=== PATIENT | female | born 2000 | race African-American/Black ===

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

== ENCOUNTER 2019-01-18 09:31 | Emergency (ER) | payer MEDICAID ==
[2019-01-18 09:36] VITALS: BP 143/70
--- NOTE | 2019-01-18 09:54 | ER Document Report ---
HPI - HPI Time Seen by Provider: 01/18/19 09:50 Onset/Duration: Gradual Pain Level: 1 Context: Patient presents complaining of dysuria for the past 2 days and is concerned she has a UTI. Patient denies any fever vaginal bleeding, vaginal discharge nausea or vomiting. Patient denies any concerns about sexually transmitted infection. Patient denies any belly pain or flank pain. Associated Symptoms: Other - Dysuria. denies: Fever Exacerbated by: Denies Relieved by: Denies Similar symptoms previously: Yes Recently seen / treated by doctor: No - ROS ROS below otherwise negative: Yes Systems Reviewed and Negative: Yes All other systems reviewed and negative - CONSTITUTIONAL Constitutional: DENIES: Fever, Chills - RESPIRATORY Respiratory: DENIES: Trouble Breathing, Coughing - GASTROINTESTINAL Gastrointestinal: DENIES: Abdominal Pain, Nausea, Patient vomiting - URINARY Urinary: REPORTS: Dysuria. DENIES: Urgency, Frequency - REPRODUCTIVE Reproductive: DENIES: :, Abnormal bleeding / discharge - MUSCULOSKELETAL Musculoskeletal: DENIES: Back Pain - DERM Skin Color: Normal Skin Problems: None Past Medical History - General Information source: Patient - Social History Smoking Status: Never Smoker Chew tobacco use (# tins/day): No Frequency of alcohol use: None Drug Abuse: None Lives with: Family Family History: Reviewed & Not Pertinent Patient has suicidal ideation: No Patient has homicidal ideation: No Endocrine Medical History: Reports: Hx Diabetes Mellitus Type 2 - on metformin Renal/ Medical History: Denies: Hx Peritoneal Dialysis Surgical Hx: Negative - Immunizations Immunizations up to date: Yes Hx Diphtheria, Pertussis, Tetanus Vaccination: Yes Vertical Provider Document - CONSTITUTIONAL Agree With Documented VS: Yes Exam Limitations: No Limitations General Appearance: WD/WN, No Apparent Distress - INFECTION CONTROL TRAVEL OUTSIDE OF THE [place] IN LAST 30 DAYS: No - HEENT HEENT: Atraumatic, Normocephalic - NECK Neck: Normal Inspection - RESPIRATORY Respiratory: Breath Sounds Normal, No Respiratory Distress - CARDIOVASCULAR Cardiovascular: Regular Rate, Regular Rhythm - GI/ABDOMEN Gastrointestinal: Abdomen Soft, Abdomen Non-Tender, No Organomegaly, Normal Bowel Sounds - BACK Back: Normal Inspection. negative: CVA Tenderness-Right, CVA Tenderness-Left - MUSCULOSKELETAL/EXTREMETIES Musculoskeletal/Extremeties: MAEW - NEURO Level of Consciousness: Awake, Alert, Appropriate Motor/Sensory: No Motor Deficit - DERM Integumentary: Warm, Dry, No Rash Course - Re-evaluation Re-evalutation: 01/18/19 10:51 Patient with hematuria and 1+ bacteria and minimal leukocytes noted on urinalysis. We will culture her urine at this time and cover with antibiotics. Offered patient pelvic examination to further evaluate why she may be having the symptoms to rule out STD. Patient declines pelvic examination prefers just to treat symptomatically and to have a urine culture performed. Discussed worsening signs or symptoms that patient should return immediately for. Patient verbalized understanding and agrees with plan of care. - Vital Signs Vital signs: Temp Pulse Resp BP Pulse Ox 98.5 F 78 18 143/70 H 97 01/18/19 09:34 01/18/19 09:34 01/18/19 09:34 01/18/19 09:34 01/18/19 09:34 - Laboratory Laboratory results interpreted by me: 01/18/19 10:52 Labs- Entire Visit 01/18/19 09:45 Urine Color YELLOW Urine Appearance SLIGHTLY-CLOUDY Urine pH 6.0 Ur Specific [place] 1.016 Urine Protein NEGATIVE Urine Glucose (UA) NEGATIVE Urine Ketones NEGATIVE Urine Blood MODERATE H Urine Nitrite NEGATIVE Urine Bilirubin NEGATIVE Urine Urobilinogen NEGATIVE Ur Leukocyte Esterase NEGATIVE Urine WBC (Auto) 4 Urine RBC (Auto) 3 Urine Bacteria (Auto) 1+ Squamous Epi Cells Auto 7 U Non-Squamous Epis Auto 1 Urine Mucus (Auto) RARE Urine Ascorbic Acid NEGATIVE Discharge - Discharge Clinical Impression: UTI (urinary tract infection) Qualifiers: Urinary tract infection type: site unspecified Hematuria presence: with hematuria Qualified Code(s): N39.0 - Urinary tract infection, site not specified Condition: Stable Disposition: HOME, SELF-CARE Instructions: Cephalexin ([facility]), Urinary Anesthetic Agent ([facility]), Urinary Tract Infection ([facility]) Additional Instructions: Return immediately for any new or worsening symptoms Followup with your primary care provider, call tomorrow to make a followup appointment Urine culture is pending, we will call if you need any different treatment Prescriptions: Cephalexin Monohydrate [Keflex 500 mg Capsule] 500 mg PO BID 5 Days capsule Phenazopyridine HCl [Pyridium 200 mg Tablet] 200 mg PO TID #15 tablet Forms: Return to Work
[2019-01-18 10:18] LABS: APPEARANCE,URINE SLIGHTLY-CLOUDY; BILIRUBIN,URINE NEGATIVE (NEGATIVE); COLOR,URINE YELLOW; GLUCOSE, URINE NEGATIVE (NEGATIVE); KETONES,URINE NEGATIVE (NEGATIVE); LEUKOCYTE ESTERASE,URINE NEGATIVE (NEGATIVE); NITRITE,URINE NEGATIVE (NEGATIVE); PROTEIN,URINE NEGATIVE (NEGATIVE); URINE SPECIFIC GRAVITY 1.016; UROBILINOGEN,URINE NEGATIVE mg/dL (<2.0)
[2019-01-18] MEDS ORDERED: CEPHALEXIN 500 MG CAPSULE PO ONE (10:51)
[2019-01-18] MEDS ORDERED: PHENAZOPYRIDINE HCL 200 MG TABLET PO ONE (10:52)
== END 2019-01-18 11:08 | disposition home or self-care (01) ==
LOC: ER 09:31
DX: N39.0 Urinary tract infection, site not specified (principal); E11.9 Type 2 diabetes mellitus without complications; Z79.84 Long term (current) use of oral hypoglycemic drugs
CPT/HCPCS: 99283; 87086; 87088; 81001; 87186; J3490

== ENCOUNTER 2019-02-25 12:35 | Emergency (ER) | payer SELFPAY ==
[2019-02-25 12:49] VITALS: BP 123/72
--- NOTE | 2019-02-25 14:15 | ER Document Report ---
ED Medical Screen (RME) - General Chief Complaint: Vaginal Pain Stated Complaint: VAGINAL DISCOMFORT Time Seen by Provider: 02/25/19 14:06 Mode of Arrival: Ambulatory Information source: Patient TRAVEL OUTSIDE OF THE [place] IN LAST 30 DAYS: No - HPI Notes: 02/25/19 14:12 18-year-old female presents ED with complaints of having vaginal itching burning and discharge for the last 4 days, was seen at [facility], was diagnosed with bacterial vaginosis and put on Flagyl. Patient states that these symptoms are becoming worse and flagyl is not helping. Denies any fevers chills, nausea vomiting diarrhea, abdominal pain, pelvic pain. Patient does want to be evaluated for STD. Last menstrual period was approximately 2 weeks ago. Denies her primary care provider. ROS: Other than noted above, the 12 point review of systems was reviewed with the patient and were negative, all pertinent findings are included in the HPI. PHYSICAL EXAMINATION: Vital signs reviewed. GENERAL: Well-appearing, well-nourished and in no acute distress. CV: Heart regular rate and rhythm LUNGS: No respiratory distress ABD: generalized abd pain, deferred Musculoskeletal: Normal range of motion NEUROLOGICAL: Normal speech PSYCH: Normal mood, normal affect. MDM: Patient seen and examined for rapid initial assessment. Vital signs reviewed. A comprehensive ED assessment and evaluation of the patient, analysis of test results and completion of the medical decision making process will be conducted by additional ED providers. *Note is created using voice recognition software and may contain spelling, syntax or grammatical errors. - Related Data Allergies/Adverse Reactions: No Known Allergies Allergy (Verified 02/25/19 14:07) Past Medical History Endocrine Medical History: Reports: Hx Diabetes Mellitus Type 2 - on metformin Renal/ Medical History: Denies: Hx Peritoneal Dialysis - Immunizations Immunizations up to date: Yes Hx Diphtheria, Pertussis, Tetanus Vaccination: Yes Physical Exam - Vital signs Vitals: Temp Pulse Resp BP Pulse Ox 98.2 F 67 16 123/72 98 02/25/19 12:48 02/25/19 12:48 02/25/19 12:48 02/25/19 12:48 02/25/19 12:48 Course - Vital Signs Vital signs: Temp Pulse Resp BP Pulse Ox 98.2 F 67 16 123/72 98 02/25/19 12:48 02/25/19 12:48 02/25/19 12:48 02/25/19 12:48 02/25/19 12:48
[2019-02-25] MEDS ORDERED: CEFTRIAXONE INJ 250 MG VIAL IM ONE (14:29)
[2019-02-25] MEDS ORDERED: LIDOCAINE 1% INJ-PF (10 MG/ML) 30 ML SDV IM ONE (14:29)
[2019-02-25] MEDS ORDERED: AZITHROMYCIN 250 MG TABLET PO ONE (14:29)
--- NOTE | 2019-02-25 14:31 | ER Document Report ---
ED General - General Chief Complaint: Vaginal Pain Stated Complaint: VAGINAL DISCOMFORT Time Seen by Provider: 02/25/19 14:06 Mode of Arrival: Ambulatory TRAVEL OUTSIDE OF THE [place] IN LAST 30 DAYS: No - HPI Notes: Patient is a 18-year-old female with no significant past medical history who presents complaining of white vaginal discharge with associated itching and burning in the vaginal area over the past 4 days. She was evaluated about 2 days ago was diagnosed with BV and placed on Flagyl. Patient states that she has taken a couple doses since then without significant improvement. Patient is here for testing and evaluation. Denies drug allergies. Last menstrual period was 2 weeks ago. She is eating and drinking without difficulty. She is having normal bowel movements. She does have some burning with urination as well. Denies any headache, fever, neck pain, URI, sore throat, chest pain, palpitations, syncope, cough, shortness of breath, wheeze, dyspnea, abdominal pain, nausea/vomiting/diarrhea, urinary retention, hematuria, back pain, or rash. - Related Data Allergies/Adverse Reactions: No Known Allergies Allergy (Verified 02/25/19 14:07) Past Medical History - General Information source: Patient Last Menstrual Period: 2 weeks ago - Social History Smoking Status: Never Smoker Chew tobacco use (# tins/day): No Frequency of alcohol use: None Family History: Reviewed & Not Pertinent Patient has suicidal ideation: No Patient has homicidal ideation: No Endocrine Medical History: Reports: Hx Diabetes Mellitus Type 2 - on metformin Renal/ Medical History: Denies: Hx Peritoneal Dialysis - Immunizations Immunizations up to date: Yes Hx Diphtheria, Pertussis, Tetanus Vaccination: Yes Review of Systems - Review of Systems -: Yes All other systems reviewed and negative Physical Exam - Vital signs Vitals: Temp Pulse Resp BP Pulse Ox 98.2 F 67 16 123/72 98 02/25/19 12:48 02/25/19 12:48 02/25/19 12:48 02/25/19 12:48 02/25/19 12:48 - Notes Notes: PHYSICAL EXAMINATION: Female exam accompanied by Maye lopez. GENERAL: Well-appearing, well-nourished and in no acute distress. HEAD: Atraumatic, normocephalic. EYES: Pupils equal round and reactive to light, extraocular movements intact, conjunctiva are normal. ENT: Nares patent, oropharynx clear without exudates. Moist mucous membranes. EAC's clear bilaterally. TMs intact bilaterally without erythema fluid or perforation. No tonsillar hypertrophy or erythema. No sinus tenderness. NECK: Normal range of motion, supple without lymphadenopathy LUNGS: Breath sounds clear to auscultation bilaterally and equal. No wheezes rales or rhonchi. HEART: Regular rate and rhythm without murmurs ABDOMEN: Soft, nontender, nondistended abdomen. No guarding, no rebound. Normal bowel sounds present. CVA tenderness negative bilaterally. Female : No inguinal adenopathy. External genitalia without erythema, lesions, or masses. Vaginal mucosa pink with scant blood noted w. minimal whitish discharge. Cervix parous, pink, and with bloody discharge. Uterus is smooth. No adnexal tenderness. No CMT. Musculoskeletal: FROM to passive/active. Strength 5+/5. Extremities: No cyanosis/clubbing/edema b/l. Peripheral pulses 2+. Capillary refill less than 3 seconds. NEUROLOGICAL: Normal speech, normal gait. PSYCH: Normal mood, normal affect. SKIN: Warm, Dry, normal turgor, no rashes or lesions noted. Course - Re-evaluation Re-evalutation: 02/25/19 15:49 Patient is an afebrile, well-hydrated, 18-year-old female who presents to the ED with BV and vaginal bleeding. Vitals are acceptable without any significant tachycardia, tachypnea, or hypoxia. PE is otherwise unremarkable. Pts abd is soft and nontender. No CMT or adnexal tenderness. Urinalysis and hCG are unremarkable for any acute pathology. See wet mount results. Chlam/gonorrhea tests are pending. Pt given zithromax/rocephin. Patient is nontoxic-appearing is tolerating p.o. without any difficulties. No other labs or imaging warranted at this time based on H&P. Low suspicion/risk for acute appendicitis, bowel obs truction, acute cholecystitis, acute cholangitis, perforated diverticulitis, incarcerated hernia, pancreatitis, perforated ulcer, peritonitis, sepsis, pelvic inflammatory disease, ectopic , tubo-ovarian abscess, ovarian torsion, or other systemic emergent condition at this time. Patient is aware that her condition can change from initial presentation and she needs to monitor symptoms closely and seek medical attention if any acute changes. Pt is still on flagyl that she began 1.5 days ago. Conservative measures otherwise for symptoms. Recheck with your PCM/OBGYN in 3-5 days. Return to the ED with any worsening/concerning symptoms otherwise as reviewed in discharge. Patient is in agreement. - Vital Signs Vital signs: Temp Pulse Resp BP Pulse Ox 98.2 F 67 16 123/72 98 02/25/19 12:48 02/25/19 12:48 02/25/19 12:48 02/25/19 12:48 02/25/19 12:48 - Laboratory Laboratory results interpreted by me: 02/25/19 14:45 Urine Glucose (UA) >=500 H Urine Blood LARGE H Ur Leukocyte Esterase TRACE H Procedures - Pelvic Exam Pelvic exam Cultures obtained: Yes Wet prep obtained: Yes Bimanual exam performed: Yes - negative Witnessed by: ania Villavicencio Discharge - Discharge Clinical Impression: BV (bacterial vaginosis) Condition: Stable Disposition: HOME, SELF-CARE Instructions: Vaginosis, Bacterial ([facility]) Additional Instructions: Maintain fluid intake Proper hygienic technique Keep the skin clean Safe sexual practices with condoms everytime Tylenol/ibuprofen as needed Check in with the health department this week for further testing if warranted Your chlamydia/gonorrhea tests are pending and you will be notified if positive results; you may call in 1 day for the results as well F/u with your PCM/OBGYN in 3-5 days for a recheck Return to the ED with any development of PEARCE/fever, trouble with vision, eye redness, worsening pain, urethral discharge, urinary retention, blood in the urine, flank pain, abdominal pain, n/v, Chest Pain, shortness of breath, joint pains, trouble breathing, or any other worsening/concerning symptoms as needed otherwise. Referrals: [facility] [Provider Group] - Follow up as needed [facility] [NO LOCAL MD] - Follow up in 3-5 days
[2019-02-25 15:17] LABS: APPEARANCE,URINE SLIGHTLY-CLOUDY; BILIRUBIN,URINE NEGATIVE (NEGATIVE); COLOR,URINE YELLOW; GLUCOSE, URINE >=500 mg/dL (NEGATIVE); KETONES,URINE NEGATIVE (NEGATIVE); LEUKOCYTE ESTERASE,URINE TRACE (NEGATIVE); NITRITE,URINE NEGATIVE (NEGATIVE); PROTEIN,URINE NEGATIVE (NEGATIVE); URINE SPECIFIC GRAVITY 1.029; UROBILINOGEN,URINE NEGATIVE mg/dL (<2.0)
[2019-02-25 15:20] LABS: BACTERIA (WET MOUNT) 4+ BACTERIA SEEN; EPITHELIALS (WET MOUNT) 4+ EPITHELIALS SEEN; RBCS (WET MOUNT) 4+ RBCS SEEN; T.VAGINALIS (WET MOUNT) NO TRICHOMONAS SEEN; WBCS (WET MOUNT) 1+ WBCS SEEN; YEAST (WET MOUNT) NO YEAST SEEN
[2019-02-25 18:29] LABS: CHLAM PCR NOT DETECTED (NOT DETECT)
== END 2019-02-25 16:17 | disposition home or self-care (01) ==
LOC: ER 12:35
DX: N76.0 Acute vaginitis (principal); B96.89 Other specified bacterial agents as the cause of diseases classified elsewhere; R10.2 Pelvic and perineal pain; R30.9 Painful micturition, unspecified; E11.9 Type 2 diabetes mellitus without complications; Z79.84 Long term (current) use of oral hypoglycemic drugs
CPT/HCPCS: 99283; 96372; 87210; 81025; 81001; 87491; 87591; J3490; J0696

== ENCOUNTER 2019-02-28 05:33 | Emergency (ER) | payer SELFPAY ==
[2019-02-28] MEDS ORDERED: VALACYCLOVIR HCL 500 MG TABLET PO ONE (08:42)
[2019-02-28] MEDS ORDERED: FLUCONAZOLE 100 MG TABLET PO ONE (08:44)
--- NOTE | 2019-02-28 08:52 | ER Document Report ---
HPI - HPI Patient complains to provider of: vaginal discomfort Time Seen by Provider: 02/28/19 08:07 Pain Level: 5 Context: 18-year-old female recently seen here for bacterial vaginosis and placed on Flagyl presents the emergency department with chief complaint of bumps on her bilateral external labia and burning with urination. Patient states that these bumps showed up about 1 week ago. It was preceded by severe itching and now she has extreme pain and burning whenever she urinates. Patient is almost completed her course of Flagyl. Patient denies any fevers or chills, she said she did feel some malaise about 1 week ago. Denies any acute shortness of breath or chest pain, denies any headache or neck stiffness, denies any recent URI, denies any abdominal pain or pelvic pain, no nausea or vomiting, no urinary frequency/urgency, she states that her dysuria is related to when her urine comes in contact with her skin, she denies any abnormal vaginal discharge, no other complaints. - CONSTITUTIONAL Constitutional: DENIES: Fever, Chills - REPRODUCTIVE Reproductive: DENIES: : Past Medical History - Social History Smoking Status: Unknown if Ever Smoked Frequency of alcohol use: None Family History: Reviewed & Not Pertinent Patient has suicidal ideation: No Patient has homicidal ideation: No Endocrine Medical History: Reports: Hx Diabetes Mellitus Type 2 - on metformin Renal/ Medical History: Denies: Hx Peritoneal Dialysis - Immunizations Immunizations up to date: Yes Hx Diphtheria, Pertussis, Tetanus Vaccination: Yes Vertical Provider Document - CONSTITUTIONAL Notes: PHYSICAL EXAMINATION: Reviewed vital signs and charting by RN GENERAL: Alert, interacts well. No acute distress. HEAD: Normocephalic, atraumatic. EYES: Pupils equal and round. Extraocular movements intact. ENT: Oral mucosa moist, tongue midline. NECK: Full range of motion. Trachea midline. ABDOMEN: soft, non-tender. No distention. Bowel sounds present : External vaginal exam performed, Ying, RN chaperoned. Multiple lesions on the internal and external labia that appear herpetic, foul-smelling with white curd-like discharge external consistent with yeast, these lesions were acutely painful to touch EXTREMITIES: Moves all 4 extremities spontaneously. No edema, No cyanosis. PSYCH: Normal affect, normal mood. SKIN: Warm, dry, normal turgor. No rashes or lesions noted. - INFECTION CONTROL TRAVEL OUTSIDE OF THE [place] IN LAST 30 DAYS: No Course - Re-evaluation Re-evalutation: 02/28/19 09:55 Overall well-appearing. As stated in physical exam and external vaginal exam was performed with GAB He, chaperoning in the room. Patient declined a speculum exam. Presentation consistent with a herpetic outbreak. A viral swab was obtained and sent to the lab. Patient also with symptoms of a yeast infection as she is currently been on antibiotics for about 1 week. Diflucan 150 mg once given. Patient also given valacyclovir 1000 mg here in the ER. She was prescribed valacyclovir 1000 mg 3 times per day for 10 days. At this time she is stable for discharge, received return precautions, and was told that if there is anything abnormal in the swab the culture nurse will call her. Her and her mother agreed to the plan. - Vital Signs Vital signs: Temp Pulse Resp BP Pulse Ox 97.9 F 78 16 132/67 H 97 02/28/19 05:40 02/28/19 05:40 02/28/19 05:40 02/28/19 05:40 02/28/19 05:40 Discharge - Discharge Clinical Impression: Lesion of labia, Yeast infection Condition: Good Disposition: HOME, SELF-CARE Additional Instructions: You were seen in the emergency department for bumps on your labia and for a probable yeast infection from being on antibiotics recently. We have sent off the culture to assess if the bumps are viral, which they appear to be. Nonetheless, we are placing you on an antiviral medication to help suppress it if that is the case. This will not hurt you. Also, because you are recently on antibiotics you do have evidence of a yeast infection and you received 1 dose of the antifungal medication called Diflucan. You will get a call early next week with the results if it was positive for any type of a virus. If you develop high fevers, body aches, severe unremitting pain, uncontrolled vaginal bleeding, or you have any other concerning symptoms please immediately return to the emergency department. Prescriptions: Valacyclovir HCl [Valacyclovir] 1,000 mg PO TID 10 Days #30 tablet
[2019-02-28 09:10] VITALS: BP 127/70
== END 2019-02-28 09:42 | disposition home or self-care (01) ==
LOC: ER 05:33
DX: N89.8 Other specified noninflammatory disorders of vagina (principal); B37.49 Other urogenital candidiasis; R10.2 Pelvic and perineal pain; R30.0 Dysuria; E11.9 Type 2 diabetes mellitus without complications; Z79.84 Long term (current) use of oral hypoglycemic drugs
CPT/HCPCS: 87252; 99283

== ENCOUNTER → 2020-03-14 | Outpatient (CLI) | payer BC ==
[2020-03-14 10:29] VITALS: BP 132/74
--- NOTE | 2020-03-14 10:29 | ER RDC ASSESSMENT REPORT ---
Intake - In the Last 14 days Have you traveled outside [place]?: No Have you been in close contact with someone CONFIRMED: No - Symptoms Subjective Fever([place] feverish): No Chills: No Muscule Aches: No Runny Nose: No Sore Throat: No Cough (New or worsening chronic cough): No Shortness of breath: No Nausea or Vomiting: No Headache: No Abdominal Pain: No Diarrhea(3 or more loose stools in last 24 hours): No - Do you have any of the following Cystic Fibrosis: No Diabetes: Yes High Blood Pressure: No Cardiovascular Disease: No Chronic Kidney Disease: No Chronic Liver Disease: No Chronic blood disorder like Sickle Cell Disease: No Weak immune system due to disease or medication: No Neurologic condition that limits movement: No Developmental delay - Moderate to Severe: No Recent (within past 2 weeks) or current : No Morbid Obesity (>100 pounds over ideal weight): No Obesity Comment: Height 5 6 weight 199 pounds - Objective Temperature: 98.2 F Pulse Rate: 74 Respiratory Rate: 20 Blood Pressure: 132/74 O2 Sat by Pulse Oximetry: 96 Objective: Given above, testing performed: If Testing Performed: Test Specimen Type Sent to General - General Information source: Patient Notes: Patient here today at [facility] for COVID testing. Patient reports employer required COVID testing due to patient's significant other having been tested last week on the she has not been exposed to anybody known positive however her significant other potentially has his results have not come of yet. Patient denies any symptoms at this point. Significant other also denies any symptoms - Related Data Allergies/Adverse Reactions: No Known Allergies Allergy (Verified 02/25/19 14:07) Past Medical History - General Information source: Patient - Social History Smoking Status: Never Smoker Family History: Reviewed & Not Pertinent Endocrine Medical History: Reports: Hx Diabetes Mellitus Type 2 - on metformin Renal/ Medical History: Denies: Hx Peritoneal Dialysis Physical Exam - General General appearance: Appears well, Alert In distress: None Notes: PHYSICAL EXAMINATION: GENERAL: Well-appearing and in no acute distress. HEAD: Atraumatic, normocephalic. EYES: sclera anicteric, conjunctiva are normal. ENT: nares patent. Moist mucous membranes. NECK: Normal range of motion, supple without lymphadenopathy LUNGS: CTAB and equal. No wheezes rales or rhonchi. Resp even and unlabored. Lung sounds clear. HEART: Regular rate and rhythm without murmurs ABDOMEN: Soft, nontender, normal bowel sounds, no guarding. EXTREMITIES: No cyanosis. NEUROLOGICAL: Normal speech. PSYCH: Normal mood, normal affect. SKIN: Warm, Dry, normal turgor, Diagnostic Results Laboratory Results: Pending COVID testing results. Patient provided instructions regarding COVID to include: As a person under investigation for Covid 19, the [facility] of Health and Human Services, division of public health advises you to adhere to the following guidance until your test results are reported to you. If your test result is positive, you will receive additional information from your provider and your local health department at that time. Remain at home until you are cleared by the health provider or public health authorities. Keep a log of visitors to your home, notify any visitors to your home of your isolation status. If you plan to move to a new address or leave the formerly [facility], notify the local health department in your County. Call your doctor or seek care if you have an urgent medical need. Before seeking medical care, call ahead to get instructions from the provider before arriving at the medical office clinic or hospital. Notify them that you are being tested for the virus that causes Covid 19 so that arrangements can be made, as necessary, to prevent transmission to others in the healthcare setting. Next, notify the local health department in your county. If a medical emergency arises and you need to call 911, inform the first re sponders that you are being tested for the virus that causes Covid 19. Next, notify the local health department in your formerly [facility]. Patient Education/Counseling Counseling/Education: Patient presents with upper respiratory symptoms worrisome for possible Covid 19. Patient does not have emergency worring symptoms such as difficulty breathing, shortness of breath, chest pain, pressure, confusion or cyanosis. Patient appears suitable for discharge. Instructed to follow-up with PCP in [place]. To ED for persistent or worsening symptoms. patient's vital signs are stable and patient is nontoxic in appearance. Good return precautions have been discussed with patient, patient verbalized understanding and is agreeable with discharge plan of care at this time. RDC Discharge - Discharge Clinical Impression: Encounter for screening laboratory testing for COVID-19 virus in asymptomatic patient Condition: Stable Disposition: Home; Selfcare
== END ==
LOC: RDC 09:46
PROVIDERS: ATTEND Nurse Practitioner Family
DX: Z20.828 Contact with and (suspected) exposure to other viral communicable diseases (principal); E11.9 Type 2 diabetes mellitus without complications; Z79.84 Long term (current) use of oral hypoglycemic drugs
CPT/HCPCS: 87635; 99201; 99211; C9803

== ENCOUNTER 2020-09-08 06:37 | Emergency (ER) | payer BC ==
[2020-09-08 06:55] VITALS: BP 161/95
[2020-09-08 08:22] LABS: ABSOLUTE BASOPHILS # (AUTO) 0.1 10^3/uL (0.0-0.2); ABSOLUTE EOSINOPHILS # (AUTO) 0.3 10^3/uL (0.0-0.6); ABSOLUTE LYMPHOCYTES (AUTO) 1.9 10^3/uL (0.5-4.7); ABSOLUTE MONOCYTES (AUTO) 0.6 10^3/uL (0.1-1.4); ABSOLUTE NEUT (AUTO) 3.9 10^3/uL (1.7-8.2); BASOPHILS % (AUTO) 1.1 % (0-2); EOSINOPHILS % (AUTO) 3.8 % (0-6); HEMATOCRIT 41.3 % (36.0-47.0); HEMOGLOBIN 14.3 g/dL (12.0-15.5); LYMPHOCYTES % (AUTO) 27.9 % (13-45); MEAN CORPUSCULAR HEMOGLOBIN 28.9 pg (27.0-33.4); MEAN CORPUSCULAR HGB CONC 34.6 g/dL (32.0-36.0); MEAN CORPUSCULAR VOLUME 84 fl (80-97); MONOCYTES % (AUTO) 9.5 % (3-13); PLATELET COUNT 354 10^3/uL (150-450); RED BLOOD COUNT 4.93 10^6/uL (3.72-5.28); RED CELL DISTRIBUTION WIDTH 13.2 % (11.5-14.0); SEGMENTED NEUTROPHILS % (AUTO) 57.7 % (42-78); TOTAL CELLS COUNTED % (AUTO) 100 %; WHITE BLOOD COUNT 6.8 10^3/uL (4.0-10.5)
--- NOTE | 2020-09-08 08:33 | EKG REPORT ---
SEVERITY:- NORMAL ECG - SINUS RHYTHM : Confirmed by: Chela Johnson MD 08-Sep-2020 08:32:51
[2020-09-08 08:42] LABS: ALKALINE PHOSPHATASE 96 U/L (38-126); ANION GAP 7 (5-19); ASPARTATE AMINO TRANSFERASE 17 U/L (14-36); BILIRUBIN,DIRECT 0.2 mg/dL (0.0-0.4); BILIRUBIN,TOTAL 0.3 mg/dL (0.2-1.3); BLOOD UREA NITROGEN 7 mg/dL (7-20); C-REACTIVE PROTEIN 16.2 mg/L (<10.0); CALCIUM 9.6 mg/dL (8.4-10.2); CARBON DIOXIDE 28 mmol/L (22-30); CHLORIDE 99 mmol/L (98-107); CREATINE KINASE 60 U/L (30-135); GLUCOSE 310 mg/dL (75-110); POTASSIUM 4.4 mmol/L (3.6-5.0); TOTAL PROTEIN 7.6 g/dL (6.3-8.2)
--- NOTE | 2020-09-08 08:45 | ER Document Report ---
Entered by BREANA DIOP SCRIBE 09/08/20 0805 Acting as scribe for:NELSY CALDERA MD ED General - General Chief Complaint: Chest Pain Stated Complaint: CHEST PAIN Time Seen by Provider: 09/08/20 08:03 Primary Care Provider: KATIE JEONG [Primary Care Provider] - Follow up as needed Mode of Arrival: Ambulatory Information source: Patient Notes: This 19-year-old female patient presents to the emergency department today with complaints of pain with breathing which began yesterday along with left lateral neck pain. Patient filled prescriptions for Zofran, ibuprofen, amoxicillin, and Percocet on 09/02/2020. Yesterday she filled another prescription for #18 more Percocet. When I asked her about the pain medication she was prescribed on September 02 and yesterday she looked at me like she did not know what I was talking about and denied filling prescriptions. She denies a cough, nausea, fevers, or sore throat. When I was reviewing the lab work with the patient and preparing for discharge, and showing her evidence of her refilling these prescriptions, she then stated that she saw the oral surgeon in [place] to have her wisdom teeth pulled last week. That would completely explain the tenderness along the anterior surface of the external head of the sternocleidomastoid muscle and the pain she feels in her anterior chest when she breathes. TRAVEL OUTSIDE OF THE [place] IN LAST 30 DAYS: No - Related Data Allergies/Adverse Reactions: No Known Allergies Allergy (Verified 02/25/19 14:07) Home Medications: metformin, BCP Past Medical History - General Information source: Patient - Social History Smoking Status: Never Smoker Cigarette use (# per day): No Frequency of alcohol use: None Drug Abuse: None Occupation: [employer] Lives with: Family Family History: Reviewed & Not Pertinent Endocrine Medical History: Reports: Hx Diabetes Mellitus Type 2 - on metformin Surgical Hx: Negative - Immunizations Immunizations up to date: Yes Hx Diphtheria, Pertussis, Tetanus Vaccination: Yes Review of Systems - Review of Systems Constitutional: No symptoms reported EENT: See HPI, Other - left anterior neck pain Cardiovascular: See HPI, Chest pain Respiratory: See HPI, Hurts to breathe Gastrointestinal: No symptoms reported Genitourinary: No symptoms reported Female Genitourinary: No symptoms reported Musculoskeletal: No symptoms reported Skin: No symptoms reported Hematologic/Lymphatic: No symptoms reported Neurological/Psychological: No symptoms reported -: Yes All other systems reviewed and negative Physical Exam - Vital signs Vitals: Temp Pulse BP Pulse Ox 98.1 F 72 161/95 H 96 09/08/20 06:46 09/08/20 06:46 09/08/20 06:46 09/08/20 06:46 - Notes Notes: Physical Exam: General: Alert, appears well. HEENT: Normocephalic. Atraumatic. PERRL. Extraocular movements intact. Oropharynx clear. There is tenderness along the left anterior cervical chain without significant lymphadenopathy. Tenderness along the sternal head of the left sternocleidomastoid muscle. No posterior cervical lymphadenopathy or tenderness with palpation. Neck: Supple. Posterior cervical muscles are not tender. The anterior surface of the sternal head of the left sternocleidomastoid muscle area is tender to palpate. Again, there were no anterior cervical chain lymph nodes palpated. No respiratory distress. Clear and equal breath sounds bilaterally. Mild anterior chest wall tenderness to palpation, reproducible pain. Cardiovascular: Regular rate and rhythm. Abdominal: Obese. Non-tender. No distension. Normal Bowel Sounds. Back: No gross abnormalities. Extremities: Moves all four extremities. Upper extremities: Normal inspection. Normal ROM. Lower extremities: Normal inspection. No edema. Normal ROM. Neurological: Normal cognition. AAOx4. Normal speech. Psychological: Normal affect. Normal Mood. Skin: Warm. Dry. Normal color. Course - Re-evaluation Re-evalutation: 09/08/20 11:02 Is lab work was unremarkable except for the hemoglobin A1c of 10.2, this was reviewed at length with the patient and reviewed all the terrible health consequences of not managing her diabetes. She was given copies of her lab work to take to follow-up with her primary care provider. - Vital Signs Vital signs: Temp Pulse Resp BP Pulse Ox 98.1 F 72 161/95 H 96 09/08/20 06:46 09/08/20 06:46 09/08/20 06:46 09/08/20 06:46 - Laboratory Results Result Diagrams: 09/08/20 08:04 09/08/20 08:04 Laboratory Results Interpreted: 09/08/20 09/08/20 08:04 08:04 Sodium 133.9 L Creatinine 0.49 L Glucose 310 H Hemoglobin A1c % 10.2 H C-Reactive Protein 16.2 H Critical Laboratory Results Reviewed: Yes Attending or Supervising Physician who Reviewed Labs: NELSY CALDERA - Elevated blood sugar - Radiology Results Radiology Results Interpreted: 09/08/20 09:02 Chest x-ray is read as low lung volumes, otherwise unremarkable. Critical Radiology Results Reviewed: No Critical Results - EKG Interpretation by Me EKG shows normal: Sinus rhythm, [place], Intervals, QRS Complexes, ST-T Waves Rate: Normal - 74 Rhythm: NSR Discharge - Discharge Clinical Impression: Poorly controlled diabetes mellitus Strain of anterolateral cervical muscle Qualifiers: Encounter type: initial encounter Qualified Code(s): S16.1XXA - Strain of muscle, fascia and tendon at neck level, initial encounter Condition: Stable Disposition: HOME, SELF-CARE Additional Instructions: The pain you are having in your left anterior neck and chest appears to be related to muscle strain from the manipulation that occurred when you had your third molars removed. This should improve over time without any specific treatment. More concerning is your hemoglobin A1c of 10.2 indicating that your blood sugars are not well controlled. Take the copies of the lab work to follow-up with your primary care provider and also ask about adding lisinopril to your medicine regimen. RETURN TO THE EMERGENCY ROOM IF ANY NEW OR WORSENING SYMPTOMS. Forms: Return to Work Referrals: JEAN-PAUL,KATIE [Primary Care Provider] - Follow up as needed I personally performed the services described in the documentation, reviewed and edited the documentation which was dictated to the scribe in my presence, and it accurately records my words and actions.
[2020-09-08 08:52] LABS: CREATINE KINASE MB < 0.22 ng/mL (<4.55); TROPONIN I < 0.012 ng/mL
--- NOTE | 2020-09-08 08:56 | RADIOLOGY REPORT (SQ) ---
EXAM DESCRIPTION: CHEST SINGLE VIEW IMAGES COMPLETED DATE/TIME: 09/08/2020 8:47 am REASON FOR STUDY: Chest pain COMPARISON: None. EXAM PARAMETERS: NUMBER OF VIEWS: One view. TECHNIQUE: Single frontal radiographic view of the chest acquired. RADIATION DOSE: NA LIMITATIONS: None. FINDINGS: LUNGS AND PLEURA: Low lung volumes limits examination. No opacities, masses or pneumotho rax. No pleural effusion. MEDIASTINUM AND HILAR STRUCTURES: No masses. Contour normal. HEART AND VASCULAR STRUCTURES: Heart normal in size. Normal vasculature. BONES: No acute findings. HARDWARE: None in the chest. OTHER: No other significant finding. IMPRESSION: 1. Low lung volumes limits the examination. NO ACUTE RADIOGRAPHIC FINDING IN THE CHEST . TECHNICAL DOCUMENTATION: JOB ID: [id number] 2010 [employer]- All Rights Reserved Reading location - IP/workstation name: [email or web address]
== END 2020-09-08 11:38 | disposition home or self-care (01) ==
LOC: ER 06:37
DX: S16.1XXA Strain of muscle, fascia and tendon at neck level, initial encounter (principal); E11.8 Type 2 diabetes mellitus with unspecified complications; R07.9 Chest pain, unspecified; M54.2 Cervicalgia; X58.XXXA Exposure to other specified factors, initial encounter; Z79.84 Long term (current) use of oral hypoglycemic drugs; Z79.899 Other long term (current) drug therapy; E66.9 Obesity, unspecified
CPT/HCPCS: 36415; 71045; 80053; 82550; 82553; 83036; 84484; 84703; 85025; 85379; 85652; 86140; 93005; 93010; 99285